=== PATIENT | female | born 2000 | race African-American/Black ===

== ENCOUNTER 2023-03-03 15:24 | Emergency (ER) | payer BC, OTHER ==
[2023-03-03] MEDS ORDERED: Ipratropium/Albuterol 3 ML NEB ONE (16:11)
[2023-03-03] MEDS ORDERED: predniSONE 20 MG TAB ONE (16:16)
== END 2023-03-03 16:27 | disposition home or self-care (01) ==
LOC: BURERS 15:24
DX: J06.9 Acute upper respiratory infection, unspecified (principal); R06.2 Wheezing
CPT/HCPCS: 99283; J7512; J7620